=== PATIENT | male | born 1975 | race Caucasian/White ===

== ENCOUNTER 2016-11-11 05:20 | Inpatient (IN) | payer MEDICARE, MEDICAID ==
[2016-11-11] MEDS ORDERED: Scopolamine 1.5 MG Transdermal Patch TRDERM PRN (06:00)
[2016-11-11] MEDS ORDERED: Gabapentin 300 MG Cap PO ONE (06:00)
[2016-11-11] MEDS ORDERED: Celecoxib 100 MG Cap PO ONE (06:00)
[2016-11-11] MEDS ORDERED: Dextrose 5%-Lactated Ringers 1,000 ML IV SCH (06:00)
[2016-11-11] MEDS ORDERED: cefOXitin 2 GM Vial ONE (06:46)
[2016-11-11] MEDS ORDERED: Naloxone 0.4 MG/ML SDV IV PRN (07:14)
[2016-11-11] MEDS ORDERED: Midazolam 1 MG/ML 2 ML SDV ONE (07:15)
[2016-11-11] MEDS ORDERED: fentaNYL 250 MCG/5 ML SDV ONE (07:15)
[2016-11-11] MEDS ORDERED: HYDROmorphone/Normal Saline 15 MG/30 ML PCA IV PRN (07:15)
[2016-11-11] MEDS ORDERED: Propofol 200 MG/20 ML SDV ONE (07:16)
[2016-11-11] MEDS ORDERED: Dexamethasone 4 MG/ML SDV ONE (07:16)
[2016-11-11] MEDS ORDERED: Succinylcholine/Normal Saline 200 MG/10 ML Syringe ONE (07:16)
[2016-11-11] MEDS ORDERED: Neostigmine Methylsulfate 1 MG/ML 5 ML Syringe ONE (07:16)
[2016-11-11] MEDS ORDERED: Rocuronium 50 MG/5 ML Vial ONE (07:16)
[2016-11-11] MEDS ORDERED: Ondansetron 4 MG/2 ML SDV ONE (07:16)
[2016-11-11] MEDS ORDERED: cefOXitin 2 GM in Sodium Chloride 0.9% 100 ML IV ONE (07:30)
[2016-11-11] MEDS ORDERED: Ropivacaine 60 ML, Dexamethasone 8 MG, EPINEPHrine 0.4 MG, Sodium Chloride 0.9% 17.6 ML NERVRT SCH ×4 (07:45)
[2016-11-11] MEDS ORDERED: Lidocaine 2% 100 MG/5 ML Syringe IVPUSH ONE ×2 (08:00)
[2016-11-11] MEDS ORDERED: Ketamine 500 MG/5 ML MDV IV SCH (08:00)
[2016-11-11] MEDS: cefOXitin 2 GM in Sodium Chloride 0.9% 50 ML IV ONE ×2 (08:45→19:29)
[2016-11-11] MEDS ORDERED: Insulin Aspart 100 Units/ML 3 ML Pen SUBCUT ONE (10:15)
[2016-11-11] MEDS ORDERED: SCOPOLAMINE PATCH ASK TOP SCH (11:22)
[2016-11-11] MEDS ORDERED: Ondansetron 4 MG/2 ML SDV IVPUSH PRN (11:22)
[2016-11-11] MEDS ORDERED: hydrOXYzine HCl 50 MG/ML SDV IM PRN (11:22)
[2016-11-11] MEDS ORDERED: Labetalol 20 MG/4 ML Syringe IVPUSH PRN (11:22)
[2016-11-11] MEDS ORDERED: Glucagon,Human Recombinant 1 MG Vial IM PRN (11:28)
[2016-11-11] MEDS ORDERED: 50% Dextrose in Water 50 ML Syringe IVPUSH PRN (11:28)
[2016-11-11] MEDS ORDERED: Metoclopramide 10 MG/2 ML SDV IVPUSH PRN (11:30)
[2016-11-11] MEDS ORDERED: diphenhydrAMINE 50 MG/ML SDV IVPUSH PRN (11:32)
[2016-11-11] MEDS ORDERED: fentaNYL 25 MCG/HR Transdermal Patch TRDERM SCH (12:00)
[2016-11-11] MEDS: Dextrose 5%-Lactated Ringers 1,000 ML IV SCH ×2 (13:01→22:57)
[2016-11-11] MEDS: Lidocaine 0.4%/D5W 2 GM/500 ML BAG IV SCH (13:03)
[2016-11-11] MEDS: Gabapentin 250 MG/5 ML Solution ML 470 ML Bottle PO SCH ×2 (15:13→21:52)
[2016-11-11] MEDS: Pantoprazole 40 MG Vial IVPUSH SCH (15:13)
[2016-11-11] MEDS: Heparin Sodium 5,000 Units/ML Vial SUBCUT SCH (15:54)
[2016-11-11] MEDS: MVI, Adult with Vitamin K 10 ML, Thiamine 200 MG, Chromium/Copper/Mang/Selen/Zn 1 ML in... IV SCH ×4 (15:54)
[2016-11-11] MEDS: cefOXitin 2 GM in Sodium Chloride 0.9% 50 ML IV SCH ×2 (15:54→21:52)
[2016-11-11] MEDS: Insulin Aspart 100 Units/ML 3 ML Pen SUBCUT PRN ×2 (17:48→21:54)
[2016-11-11] MEDS: TRANSDERM SCOP CHECK TOP SCH (19:30)
[2016-11-11] MEDS ORDERED: Insulin Detemir 100 Units/ML 3 ML Pen SUBCUT ONE (21:00)
[2016-11-12] MEDS: Lidocaine 0.4%/D5W 2 GM/500 ML BAG IV SCH (00:27)
[2016-11-12] MEDS: Heparin Sodium 5,000 Units/ML Vial SUBCUT SCH ×3 (00:28→15:26)
[2016-11-12] MEDS: cefOXitin 2 GM in Sodium Chloride 0.9% 50 ML IV SCH ×3 (03:11→15:25)
[2016-11-12] MEDS ORDERED: Iohexol 647 MG/ML 50 ML SDV PO SCH (04:00)
[2016-11-12] MEDS: Insulin Aspart 100 Units/ML 3 ML Pen SUBCUT PRN (05:16)
[2016-11-12] MEDS: Dextrose 5%-Lactated Ringers 1,000 ML IV SCH (05:18)
[2016-11-12] MEDS ORDERED: Dextrose 5%-Lactated Ringers 1,000 ML IV SCH (07:29)
[2016-11-12] MEDS ORDERED: Acetaminophen Soln 650 MG/20.3 ML UD Cup PO PRN (07:36)
[2016-11-12] MEDS ORDERED: Acetaminophen 160 MG Tab,Disintegrating PO PRN (07:36)
[2016-11-12] MEDS: Bacitracin Oint 28.35 GM Tube TOP SCH ×3 (08:17→20:44)
[2016-11-12] MEDS: Gabapentin 250 MG/5 ML Solution ML 470 ML Bottle PO SCH ×2 (08:17→14:08)
[2016-11-12] MEDS: Lisinopril 2.5 MG Tab PO SCH (08:18)
[2016-11-12] MEDS: Celecoxib 100 MG Cap PO SCH (08:19)
[2016-11-12] MEDS: TRANSDERM SCOP CHECK TOP SCH (08:43)
[2016-11-12] MEDS: Magnesium Sulfate/Water 2 GM in Premix Bag 1 BAG IV SCH ×2 (09:55→15:26)
--- NOTE | 2016-11-12 10:00 | CR ---
Limited upper GI The patient is status post Marlon-en-Y gastric bypass. There are left upper quadrant drains in place. There is no extravasation of contrast. The gastric pouch empties readily into a nondilated Marlon limb . No complications are evident. Impression: 1. Status post Marlon-en-Y gastric bypass without evidence for complication.
[2016-11-12] MEDS: Pantoprazole 40 MG Vial IVPUSH SCH (14:08)
[2016-11-12] MEDS: MVI, Adult with Vitamin K 10 ML, Thiamine 200 MG, Chromium/Copper/Mang/Selen/Zn 1 ML in... IV SCH ×4 (17:42)
[2016-11-12] MEDS: traMADol 50 MG Tab PO PRN (18:09)
[2016-11-12] MEDS ORDERED: Insulin Detemir 100 Units/ML 3 ML Pen SUBCUT ONE (21:00)
[2016-11-13] MEDS: Heparin Sodium 5,000 Units/ML Vial SUBCUT SCH ×3 (00:02→16:55)
[2016-11-13] MEDS: traMADol 50 MG Tab PO PRN (02:01)
[2016-11-13] MEDS ORDERED: Sodium Chloride 0.9% 10 ML Syringe FLUSH PRN (08:09)
[2016-11-13] MEDS ORDERED: Cyanocobalamin (Vitamin B12) 1,000 MCG/ML SDV IM ONE (09:00)
[2016-11-13] MEDS: Bacitracin Oint 28.35 GM Tube TOP SCH ×3 (09:19→20:00)
[2016-11-13] MEDS: Lisinopril 2.5 MG Tab PO SCH (09:20)
[2016-11-13] MEDS: Celecoxib 100 MG Cap PO SCH (09:21)
[2016-11-13] MEDS: TRANSDERM SCOP CHECK TOP SCH (09:21)
[2016-11-13] MEDS ORDERED: Insulin Detemir 100 Units/ML 3 ML Pen SUBCUT ONE (21:00)
[2016-11-14] MEDS: Heparin Sodium 5,000 Units/ML Vial SUBCUT SCH ×2 (00:41→07:51)
[2016-11-14 08:20] VITALS: BP 142/80
[2016-11-14] MEDS: Celecoxib 100 MG Cap PO SCH (08:20)
[2016-11-14] MEDS: Lisinopril 2.5 MG Tab PO SCH (08:20)
[2016-11-14] MEDS: Bacitracin Oint 28.35 GM Tube TOP SCH (08:21)
[2016-11-14] MEDS: TRANSDERM SCOP CHECK TOP SCH (08:21)
--- NOTE | 2016-11-14 10:05 | PN ---
DATE OF SERVICE: 11/14/2016 SUBJECTIVE: Vadim is postop day 2. Blood sugars have been 154 and 120. He did receive the alogliptin 25 mg yesterday and Levemir 30. He has been up ambulating. Oral intake has been adequate at 1240. Pain is controlled. OBJECTIVE: GENERAL: Vadim Bruno is a 41-year-old male. He is alert and orientated. VITAL SIGNS: Stable. HEENT: Negative. NECK: Supple. HEART: Regular rate and rhythm. LUNGS: Clear. ABDOMEN: Incisions look good. GERTRUDE drains were discontinued. 4x4s over GERTRUDE drain sites. Abdominal binder is on. EXTREMITIES: Without peripheral edema. ASSESSMENT: Laparoscopic Marlon-en-Y gastric bypass surgery, liver biopsy, repair of diaphragmatic hernia, excision of mediastinal lipoma on 11/11/2016. PLAN: 1. Decrease Levemir to 15 units at bedtime. 2. Step-2 gastric bypass diet without cereal. 3. B12 of 1000 mcg IM injection. 4. Good pulmonary toilet encouraged. 5. On saline lock IV. 6. We will evaluate p.r.n. or in a.m. Jessica Cortez PA-C /[id number]
--- NOTE | 2016-11-14 10:07 | PN ---
DATE OF SERVICE: 11/12/2016 SUBJECTIVE: Vadim is postop day #1. His upper GI was normal. He has been up ambulating. He has no other concerns or questions. Blood sugars have been 188 and 143 this morning. OBJECTIVE: GENERAL: Vadim is a 41-year-old male. He is alert and orientated. SKIN: Warm and dry. Color pale. VITAL SIGNS: TPR is 98.6, 99, 16. Blood pressure 120/64. HEENT: Negative. NECK: Supple. HEART: Regular rate and rhythm. LUNGS: Clear. ABDOMEN: Dressings dry and intact. GERTRUDE drains x2 intact. EXTREMITIES: Without peripheral edema. ASSESSMENT: Laparoscopic Marlon-en-Y gastric bypass surgery, liver biopsy, repair of diaphragmatic hernia, excision of mediastinal lipoma on 11/11/2016. PLAN: Decrease IV rate to 100 mL per hour. Continue step-1 gastric bypass diet. Discontinue Ann. Discontinue telemetry continuous pulse ox. Lisinopril 2.5 mg oral daily. Alogliptin 25 mg oral daily, bacitracin for some tape zavala. CIVIL PROCESS SERVER discontinued. He was started on tramadol 150 to 100 mg every 6 hours. Levemir 30 units subcu given. We will evaluate p.r.n. or in a.m. Jessica Cortez PA-C /[id number]
--- NOTE | 2016-11-15 08:16 | DISCH ---
ADMISSION DIAGNOSES: Morbid obesity, chronic kidney disease, diabetes mellitus type 2, dyslipidemia, history of seizure, and hypertension. DISCHARGE DIAGNOSES: Laparoscopic Marlon-en-Y gastric bypass surgery, liver biopsy, repair of diaphragmatic hernia, and excision of mediastinal lipoma for morbid obesity, hepatomegaly, diaphragmatic hernia, and mediastinal lipoma. HISTORY: Vadim Bruno is a 41-year-old male with longstanding history of morbid obesity and increasing comorbidities. After preoperative evaluation and discussion of possible risks and possible complications, he wished to proceed with surgical procedure. HOSPITAL COURSE: Vadim had a surgery on 11/11/2016. He had no operative complications. On postop day #1, he was started on step-1 gastric bypass diet. His blood sugars were treated appropriately. On postop day #2, he was started on step-2 gastric bypass diet received dietary instruction and a B12 of 1000 mcg mg IM injection. On postop day #3, his activity was good. Blood sugars prior to discharge were 122 and 107. His activity was good, pain was managed, and he was well educated on gastric bypass diet when discharged and he was able to be discharged on 11/14/2016. PHYSICAL EXAMINATION: GENERAL: Vadim Bruno is a 41-year-old male. He is alert and orientated. VITAL SIGNS: Height is 5 feet 9 inches. Weight is 308 pounds, BMI is 45. TPR is 97.2, 79, 20. Blood pressure 114/62. HEENT: Negative. NECK: Supple. HEART: Regular rate and rhythm. LUNGS: Clear. ABDOMEN: Dressings dry and intact. Sutures look good. EXTREMITIES: Without peripheral edema. DISPOSITION: Discharged to home. CONDITION: Stable and improving. FOLLOWUP APPOINTMENT: With Jessica Cortez PA-C, on 11/23/2016 at 12:00 p.m. at [place], [place]. HOME MEDICATIONS: 1. Tylenol 650 mg oral every 6 hours p.r.n. pain, liquid 100 mL. 2. Bacitracin ointment topical apply to tape zavala. 3. Celebrex 200 mg oral daily #14. 4. Zofran ODT 4 mg every 6 hours p.r.n. nausea. 5. Januvia 100 mg oral daily #90 with 4 refills. 6. Tramadol 50 mg 1 to 2 every 6 hours p.r.n. pain #50. 7. He is to resume lisinopril 2.5 mg daily. DIET AFTER DISCHARGE: Drink 8 to 10 glasses of water a day. Diet is step-2 gastric bypass diet with no cereal. ACTIVITY: Cough and deep breathe. No lifting greater than 10 pounds for 2 weeks. Walk 8 times daily inside your home. Driving, do not drive on pain medication. Shower bathing, may shower. Notify provider of fever, increased pain, swelling, redness, drainage, nausea, or vomiting. Wound incision care; keep site clean and dry, wear abdominal binder for 2 weeks and then as tolerated. SPECIAL INSTRUCTIONS: 1. Check blood sugars twice a day and record the results. 2. Use incentive spirometer 10 times every hour while awake for 2 weeks. 3. Call the clinic in 2 days with results of blood sugars. 4. Start multivitamin chewable take twice a day. 5. Start B12 of 1000 mcg under your tongue once a day. 6. Clinic number is [phone].
--- NOTE | 2016-11-15 10:24 | OR ---
DATE OF PROCEDURE: 11/11/2016 PREOPERATIVE DIAGNOSIS: Morbid obesity. POSTOPERATIVE DIAGNOSES: 1. Morbid obesity. 2. Marked hepatomegaly. 3. Paraesophageal diaphragmatic hernia. 4. Mediastinal lipoma. OPERATIVE PROCEDURE: 1. Placement of bilateral transversus abdominis plane block (29483). 2. Diagnostic laparoscopy with:. a. Laparoscopic Marlon-en-Y gastric bypass along with long limb gastroenterostomy (93760). b. Eleno-Cut needle liver biopsy (69795). c. Repair of paraesophageal diaphragmatic hernia (47540). d. Excision of mediastinal lipoma (60818). ANESTHESIA: General. SHOE SALESMAN: Jessica Cortez PA-C. INDICATION FOR PROCEDURE: This is a 41-year-old male presenting with longstanding morbid obesity and increasingly significant comorbidities. After preoperative evaluation and discussion, he wished to proceed with a gastric bypass procedure. Potential risks of the procedure including bleeding, infection, injury to underlying viscera, possible problems with leaks from GI tract closures, bowel obstruction over time as well as possibility of cardiopulmonary, septic, or hemorrhagic complications leading to were all discussed and the patient wishes to proceed. DETAILS OF PROCEDURE: The patient was taken to the operating room and placed in a supine position. After general endotracheal anesthesia was induced, converted to a lithotomy position and a Ann catheter was inserted. At that point, bilateral subcostal transversus abdominis plane blocks were placed using combination of ropivacaine, dexamethasone, epinephrine, sodium chloride with 40 mL injected on each site with direct ultrasound guidance using sterile technique. Following that, the abdomen was prepped and draped and the orogastric tube placed. At 15 cm inferior and 5 cm left of xiphoid process, transverse incision was made and peritoneal cavity entered direct vision with an Optiview trocar, was inflated to 15 mmHg pressure with CO2. Laparoscope was then reinserted and no underlying trocar insertion site injuries were seen. Following this, 5 additional trocars were placed across the upper and mid abdomen and general exploration was undertaken. The patient noted to have marked hepatomegaly with liver volume being roughly 2 to 3 times normal and somewhat fatty infiltrated. Eleno-Cut needle biopsies were obtained from the left lobe of liver and minimal bleeding from the biopsy sites was controlled with electrocautery. The omentum was then divided in the midline up to the level of the transverse colon allowing identification of the small bowel at the ligament of Treitz. Small bowel was then traced out 200 cm distal to that point and was divided transversely with a HANNAH stapler. Small bowel was then traced out to additional 200 cm where the [id number]-ru-lpho enteroenterostomy was accomplished with an internal firing of the Endo-HANNAH 60-mm stapler. The common opening was then closed transversely with the same stapler and angles anastomosed, and mesenteric defect approximated with some 0-Ethibond stitch along with fibrin sealant. The divided end of the Marlon limb was then from the mesentery for a few centimeters, which allowed an antecolic positioning of the Marlon limb up to the level of the gastroesophageal junction without tension. The liver was then retracted anteriorly. The patient was noted to have a significant paraesophageal-type diaphragmatic hernia. This contained some perigastric fat and gastric fundus along with the edge of omentum and prolapsing in a plane anterior to the course of the esophagus. This area was reduced and the peritoneum overlying the hernia divided and reflected downward. An anterior repair of the hernia was then accomplished with some 0- Ethibond sutures reinforced with PTFE pledgets and then during the course of the mediastinal dissection, the lipoma was encountered, and to facilitate adequate repair, this was excised and sent in for pathologic review. The gastrointestinal balloon catheter was then inflated to 15 mL and pulled up snugly against the EG junction, gastric wall over the apex balloon was then marked with electrocautery, and balloon catheter deflated and pulled up in the esophagus. The lesser omental tissue adjacent to the cardia was then incised allowing dissection behind the stomach at that level, the pouch formation was initiated with a transverse firing of the HANNAH stapler at the level of cauterized karmen in the gastric cardia. Pouch was then completed with 2 additional firings of the HANNAH staplers up to and through the angle of His. Upon completion of the pouch formation, both staple lines were found to be intact. The anvil of a 25 mm EEA stapler was attached to [place] sump type tube. The latter was brought down through the mouth and taken out through the small opening of the gastric pouch. The anvil likewise was pulled down to within the gastric pouch. The divided end of the Marlon limb was then opened and main body of the EEA stapler passed several centimeters in the lumen of small bowel, brought up the anvil and united with it, thus creating the gastrojejunostomy. Upon removal of the stapler, double donuts of mucosa were noted within it. The small bowel was closed off with a vascular staple line. The gastrojejunostomy was then reinforced with some 3-0 Vicryl seromuscular stitch along with fibrin sealant. Leak test was accomplished with injection of 120 mL of air in the gastric pouch while submerging with cefoxitin-containing saline solution. No leaks were identified. Two Stephen-Izaguirre drains were then placed adjacent to the gastrojejunostomy, taken out through subcostal trocar sites. No further problems were noted. Trocars were removed. The peritoneal cavity was deflated. Incisions were closed with some 4-0 Vicryl skin stitch and drains with 4-0 Vicryl stitch as well. The patient was taken to the recovery room in a satisfactory condition. Physician library services assistant, Jessica Cortez played an essential role in assisting in this case, helping to position the patient, retract structures as needed, as well as suturing and cutting sutures as indicated. Her presence improved the patient safety and decreased the operative time. Juvenal Amador MD /[id number]
--- NOTE | 2016-11-15 10:33 | PN ---
DATE OF SERVICE: 11/12/2016 SUBJECTIVE: Vadim is postop day #1, his upper GI was normal. His pain has been controlled. He has been up ambulating. Oral intake was 960. GERTRUDE drain put out 40 mL of a light pink drainage. Temp max was 100.2. He is using his IS. Temp is currently is 98.6. Blood sugars have been 286, 260, and 255. The pain he states has been controlled. REVIEW OF SYSTEMS: Remainder of review of systems negative for any pertinent positives and negatives. OBJECTIVE: GENERAL: Vadim Bruno is a 41-year-old male. His color is flushed, he is sitting in chair. VITAL SIGNS: TPR is 98.6, 86, 20. Blood pressure 142/84. HEENT: Negative. NECK: Supple. HEART: Regular rate and rhythm. LUNGS: Clear. ABDOMEN: Dressings dry and intact. Abdominal binder is on and GERTRUDE drains x2 intact draining 35 and 40 mL respectively of a light pink drainage. EXTREMITIES: Revealed trace peripheral edema. ASSESSMENT: Laparoscopic Marlon-en-Y gastric bypass surgery, liver biopsy, repair of diaphragmatic hernia, and excision of mediastinal lipoma for morbid obesity, hepatomegaly, diaphragmatic hernia, and mediastinal lipoma on 11/11/2016. PLAN: 1. Discontinue Ann catheter. Decrease IV to 40 mL/h. Continue step-1 gastric bypass diet. Discontinue telemetry. Continuous pulse ox. SERVICE ENGINEER. 2. Magnesium 2 g IV q.6 hours x72 hours. Levemir 30 units subcu one time at 2100 hours. Januvia 100 mg p.o. daily. Bacitracin ointment to tape zavala 3 times a day. Tylenol 650 mg liquid q.6 hours p.r.n. lesser pain and/or Tylenol Nikita Meltaways 640 mg p.o. q.4 hours p.r.n. lesser pain, the patient may choose one or the other. Lisinopril 2.5 mg p.o. daily. 3. Good pulmonary toilet encouraged. 4. We will evaluate p.r.n. or in a.m. Jessica Cortez PA-C /[id number]
--- NOTE | 2016-11-18 09:21 | PN ---
DATE OF SERVICE: 11/13/2016 SUBJECTIVE: Vadim is postop day 2. He is tolerating the step-1 diet. Blood sugars have been coming down nicely. No other complaints. He has been ambulating, and pain has been controlled. OBJECTIVE: GENERAL: Vadim is a 41-year-old male, alert and orientated. VITAL SIGNS: Stable. HEENT: Negative. NECK: Supple. HEART: Regular rate and rhythm. LUNGS: Clear. ABDOMEN: Incisions look good. Abdominal binder is on. EXTREMITIES: Without peripheral edema. ASSESSMENT: Laparoscopic Marlon-en-Y gastric bypass surgery, liver biopsy, repair of diaphragmatic hernia, excision of mediastinal lipoma, 11/11/2016. PLAN: 1. Decrease Levemir. 2. Continue step-2 gastric bypass diet. 3. Good pulmonary toilet encouraged. 4. May saline lock IV. 5. We will evaluate p.r.n. or in a.m. Jessica Cortez PA-C /[id number]
== END 2016-11-14 10:43 | disposition home or self-care (01) | DRG 621 ==
LOC: JP.MS 05:20 → UNDOADMIN 05:20 → JP.SDS 05:20 → EDSTATUS 10:00 → JP.2SS 10:50
PROVIDERS: ADMIT Surgery; ATTEND Surgery
PROC: 0DB63ZZ Excision of Stomach, Percutaneous Approach (ICD-10-PCS; principal; 2016-11-11)
PROC: 0D164ZA Bypass Stomach to Jejunum, Percutaneous Endoscopic Approach (ICD-10-PCS; principal; 2016-11-11)
PROC: 0DB84ZZ Excision of Small Intestine, Percutaneous Endoscopic Approach (ICD-10-PCS; principal; 2016-11-11)
PROC: [UNRECOGNIZED PROCEDURE] (principal; 2016-11-11)
PROC: 0BUR4KZ (ICD-10-PCS; principal; 2016-11-11)
PROC: 0FB24ZX Excision of Left Lobe Liver, Percutaneous Endoscopic Approach, Diagnostic (ICD-10-PCS; principal; 2016-11-11)
PROC: 0WBH4ZX Excision of Retroperitoneum, Percutaneous Endoscopic Approach, Diagnostic (ICD-10-PCS; principal; 2016-11-11)
DX: E66.01 Morbid (severe) obesity due to excess calories (principal); I12.9 Hypertensive chronic kidney disease with stage 1 through stage 4 chronic kidney disease, or unspecified chronic kidney disease; N18.9 Chronic kidney disease, unspecified; E78.5 Hyperlipidemia, unspecified; Z86.69 Personal history of other diseases of the nervous system and sense organs; Z68.42 Body mass index [BMI] 45.0-49.9, adult; Z79.4 Long term (current) use of insulin; R16.0 Hepatomegaly, not elsewhere classified; K44.9 Diaphragmatic hernia without obstruction or gangrene; D17.9 Benign lipomatous neoplasm, unspecified; E11.9 Type 2 diabetes mellitus without complications
CPT/HCPCS: 36415; 74240; 74240-26; 80048; 82962; 83036; 83735; 84100; 85027; 86850; 86900; 86901; 88304; 88305; 88307; 88342; A9270-GY; C9113; J0171; J0694; J1100; J1170; J1644; J2001; J2250; J2405; J2704; J2795; J3010; J3411; J3420; J3475; J7030; J7040; J7042; J7050; Q9967

== ENCOUNTER 2018-09-05 21:36 | Inpatient (IN) | payer MEDICAID, MEDICARE ==
[~2018-09-05 21:36] MED LIST: HYDROmorphone/Normal Saline 15 MG/30 ML PCA IV PRN; Naloxone 0.4 MG/ML SDV IV PRN; hydrOXYzine HCl 100 MG/2 ML SDV IM PRN
[2018-09-05] MEDS ORDERED: cefOXitin 2 GM in Sodium Chloride 0.9% 50 ML IV ONE (21:55)
[2018-09-05] MEDS ORDERED: Lactated Ringers 1,000 ML IV SCH (22:00)
[2018-09-05] MEDS ORDERED: Succinylcholine 200 MG/10 ML MDV ONE (22:13)
[2018-09-05] MEDS ORDERED: Glycopyrrolate 0.2 MG/ML 5 ML MDV ONE (22:13)
[2018-09-05] MEDS ORDERED: Rocuronium 50 MG/5 ML Vial ONE ×2 (22:13→22:44)
[2018-09-05] MEDS ORDERED: Dexamethasone 4 MG/ML SDV ONE (22:13)
[2018-09-05] MEDS ORDERED: fentaNYL 250 MCG/5 ML SDV ONE ×2 (22:13→23:03)
[2018-09-05] MEDS ORDERED: Neostigmine Methylsulfate 1 MG/ML 5 ML Syringe ONE (22:13)
[2018-09-05] MEDS ORDERED: Propofol 200 MG/20 ML SDV ONE (22:13)
[2018-09-05] MEDS ORDERED: Ondansetron 4 MG/2 ML SDV ONE (22:13)
[2018-09-05] MEDS ORDERED: HYDROmorphone/Normal Saline 15 MG/30 ML PCA IV ONE (22:15)
[2018-09-05] MEDS ORDERED: HYDROmorphone/Normal Saline 15 MG/30 ML PCA IV PRN (22:47)
[2018-09-05] MEDS ORDERED: Naloxone 0.4 MG/ML SDV IVPUSH PRN (22:47)
[2018-09-05] MEDS ORDERED: Meropenem 500 MG SDV ONE (23:02)
[2018-09-05] MEDS ORDERED: Lactated Ringers 1,000 ML ONE (23:38)
[2018-09-06] MEDS ORDERED: hydrOXYzine HCl 100 MG/2 ML SDV IM ONE (00:10)
[2018-09-06] MEDS ORDERED: hydrOXYzine HCl 100 MG/2 ML SDV ONE (00:12)
[2018-09-06] MEDS ORDERED: Metoclopramide 10 MG/2 ML SDV IV PRN (00:56)
[2018-09-06] MEDS ORDERED: hydrOXYzine HCl 100 MG/2 ML SDV IM PRN (00:56)
[2018-09-06] MEDS ORDERED: diphenhydrAMINE 50 MG/ML SDV IVPUSH PRN ×2 (00:56→07:23)
[2018-09-06] MEDS ORDERED: Ondansetron 4 MG/2 ML SDV IVPUSH PRN (00:56)
[2018-09-06] MEDS ORDERED: Labetalol 100 MG/20 ML MDV IVPUSH PRN (00:56)
[2018-09-06] MEDS ORDERED: Dextrose 5%-Lactated Ringers 1,000 ML IV SCH (01:00)
[2018-09-06] MEDS ORDERED: Scopolamine 1.5 MG Transdermal Patch TRDERM PRN (01:08)
[2018-09-06] MEDS: Pantoprazole 40 MG Vial IVPUSH SCH (01:33)
[2018-09-06] MEDS: Acetaminophen Soln 650 MG/20.3 ML UD Cup PO SCH ×4 (01:34→18:28)
[2018-09-06] MEDS: cefOXitin 2 GM in Sodium Chloride 0.9% 50 ML IV SCH ×4 (03:13→21:02)
[2018-09-06] MEDS: Tamsulosin 0.4 MG Cap.ER PO SCH ×2 (08:38→17:13)
--- NOTE | 2018-09-06 08:55 | PN ---
DATE OF SERVICE: 09/06/2018 SUBJECTIVE: Vadim had surgery in the middle of the night. He reports an increased amount of pain in his incision. Running a low-grade temperature. Temperature max 99.7. He has not been up yet. Surgery was close to midnight. Oral intake, just sips. Urinary output via Ann catheter 750 of a light yellow drainage. SCDs are on. REVIEW OF SYSTEMS: Remainder of review of systems negative for any pertinent positives and negatives. OBJECTIVE: GENERAL: Vadim Bruno is a 42-year-old male, pale, sleepy. VITAL SIGNS: TPR is 99.4, 71, 16, blood pressure 103/52. HEENT: Negative. NECK: Supple. HEART: Regular rate and rhythm. LUNGS: Clear. ABDOMEN: Dressings dry and intact. Abdominal binder is on. EXTREMITIES: SCDs are on. There is no peripheral edema. ASSESSMENT: Exploratory laparotomy with revision of the jejunojejunostomy component of the Marlon-en-Y gastric bypass. Reduction of small bowel volvulus and closure of internal hernia and rectosigmoid resection with cecoproctostomy for small bowel volvulus with ischemia to the jejunostomy and chronic sigmoid colon volvulus. PLAN: 1. Magnesium 2 g IV q.6 h. x72 hours. 2. Decrease IV to 100 mL per hour at 1400. 3. Step-2 with no cereal gastric bypass diet. 4. Flomax 0.4 mg b.i.d. 5. Check hemoglobin A1c today. 6. Leave Ann catheter in for accurate output. 7. Good pulmonary toilet. 8. We will evaluate p.r.n. or in a.m. Jessica Cortez PA-C /[id number]
[2018-09-06 09:25] LABS: HEMOGLOBIN A1C 5.7 % (4.5-6.2)
[2018-09-06] MEDS: Magnesium Sulfate/Water 2 GM in Premix Bag 1 BAG IV SCH ×3 (10:45→21:39)
[2018-09-06] MEDS ORDERED: MVI, Adult with Vitamin K 10 ML, Thiamine 200 MG, Chromium/Copper/Mang/Selen/Zn 1 ML in... IV SCH ×4 (16:00)
[2018-09-07] MEDS: Acetaminophen Soln 650 MG/20.3 ML UD Cup PO SCH ×3 (01:27→13:20)
[2018-09-07] MEDS: Pantoprazole 40 MG Vial IVPUSH SCH (01:27)
[2018-09-07] MEDS: Dextrose 5%-Lactated Ringers 1,000 ML IV SCH ×2 (01:28→13:21)
[2018-09-07] MEDS ORDERED: Iohexol 647 MG/ML 50 ML SDV PO STA (01:33)
[2018-09-07] MEDS: cefOXitin 2 GM in Sodium Chloride 0.9% 50 ML IV SCH (03:42)
[2018-09-07] MEDS: Magnesium Sulfate/Water 2 GM in Premix Bag 1 BAG IV SCH ×2 (03:42→10:26)
[2018-09-07] MEDS: Tamsulosin 0.4 MG Cap.ER PO SCH ×2 (07:48→16:32)
[2018-09-07] MEDS ORDERED: Cyanocobalamin (Vitamin B12) 1,000 MCG/ML SDV IM ONE (09:00)
[2018-09-07] MEDS ORDERED: Bisacodyl 5 MG Tab PO SCH (09:00)
[2018-09-07] MEDS: Docusate Sodium 100 MG Cap PO SCH ×2 (09:37→20:01)
--- NOTE | 2018-09-07 10:38 | PN ---
DATE OF SERVICE: 09/07/2018 SUBJECTIVE: Vadim is postoperative day #2. He states his pain is controlled. He has been up ambulating. Upper GI this morning was normal. REVIEW OF SYSTEMS: Remainder of review of systems negative for any pertinent positives and negatives. OBJECTIVE: GENERAL: Vadim Bruno is a 42-year-old male. He is alert and orientated, sitting up in the chair. VITAL SIGNS: TPR is 100.5, 93, 18, and blood pressure 125/68. HEENT: Negative. NECK: Supple. HEART: Regular rate and rhythm. LUNGS: Clear. ABDOMEN: Dressings dry and intact. Abdominal binder is on. Ann is intact. His urine output was 970. Oral intake was 1050. IV continues to run at 100 mL/hour. EXTREMITIES: Without peripheral edema. ASSESSMENT: Exploratory laparotomy with revision of the jejunojejunostomy component of the Marlon-en-Y gastric bypass, reduction of small bowel volvulus and closure of internal hernia, and rectosigmoid resection with cecal proctoscopy for small bowel volvulus with ischemia to the jejunostomy and chronic sigmoid colon volvulus. Date of surgery, 09/05/2018. PLAN: 1. Step-3 gastric bypass diet. 2. Discontinue VARNISH THINNER, continuous pulse ox. 3. Percocet 5/325 mg 1 to 2 every 4 hours p.r.n. pain. 4. Discontinue Ann catheter. 5. Dressing off and may shower. 6. Colace 100 mg b.i.d. 7. Dulcolax two tabs b.i.d. until having bowel movement. 8. Good pulmonary toilet. 9. We will evaluate p.r.n. or in a.m. Jessica Cortez PA-C /[id number]
--- NOTE | 2018-09-07 11:33 | CR ---
Limited upper GI The patient is status post Marlon-en-Y gastric bypass. There is no extravasation of contrast. The gastric pouch empties readily into a nondilated Marlon limb. There is gaseous distention of the colon which may reflect a ileus.. No complications are evident. Impression: 1. Status post Marlon-en-Y gastric bypass without evidence for complication.
[2018-09-07] MEDS: Acetaminophen/oxyCODONE 325-5 MG Tab PO PRN ×3 (11:58→21:35)
[2018-09-07] MEDS ORDERED: Ondansetron 4 MG Tab.DIS PO PRN (14:34)
[2018-09-07] MEDS ORDERED: Pantoprazole 40 MG Delayed-Release Granules 1 Packet PO SCH (22:00)
[2018-09-08] MEDS: Acetaminophen/oxyCODONE 325-5 MG Tab PO PRN ×2 (04:07→11:56)
[2018-09-08] MEDS: Tamsulosin 0.4 MG Cap.ER PO SCH (08:32)
[2018-09-08] MEDS: Docusate Sodium 100 MG Cap PO SCH (08:34)
[2018-09-08 08:43] VITALS: BP 131/78
--- NOTE | 2018-09-11 09:00 | DISCH ---
ADMISSION DIAGNOSES: Partial small bowel obstruction, SP Marlon-en-Y gastric bypass surgery, type 2 diabetes mellitus in remission, chronic kidney disease stage 3, hypertension, history of seizure disorder, vitamin B deficiency, vitamin D deficiency, and dyslipidemia. DISCHARGE DIAGNOSES: Exploratory laparotomy with revision of the jejunojejunostomy component of the Marlon-en-Y gastric bypass surgery, reduction of small bowel volvulus and closure of internal hernia and rectosigmoid resection with cecoproctostomy for small bowel volvulus with ischemia to the jejunostomy and chronic sigmoid colon volvulus. Date of surgery 09/05/2018. HISTORY: Vadim Bruno is a 42-year-old male who presented to the emergency room and transferred [facility] with a small bowel obstruction. After preoperative evaluation and discussion of possible risks and possible complications, he consented to surgery. There were no operative complications. Upper GI was normal. He was started on a step-2 and then advanced to a step-3 diet. He was changed to oral pain medication, given bowel stimulation, and was able to be discharged to home on 09/08/2018 without any complications. PHYSICAL EXAMINATION: GENERAL: Vadim Bruno is a 42-year-old male. He is alert and orientated. VITAL SIGNS: TPR 99.4, 75, 16, and blood pressure 119/75. HEENT: Negative. NECK: Supple. HEART: Regular rate and rhythm. LUNGS: Clear. ABDOMEN: Vitkoria intact. Abdominal binder has been on. EXTREMITIES: Without peripheral edema. DISPOSITION: Discharged to home. CONDITION: Stable and improving. FOLLOWUP APPOINTMENT: Jessica Cortez PA-C at [facility] on 09/15/2018 at 10:00 a.m. HOME MEDICATIONS: 1. Percocet 5/325 mg 1 to 2 tables every 4 hours p.r.n. pain. 2. Zofran ODT 4 mg every 4 hours p.r.n. nausea. 3. He is to resume his home medications. DISCHARGE DIET: Diet after discharge is step-3 gastric bypass diet. Drink 8 to 10 glasses of water a day. ACTIVITY: No lifting greater than 10 pounds for 2 weeks. Walk at least 6 times daily. Driving, do not drive while on pain medication. Shower/bathing, may shower. Keep operative site clean and dry. Wear abdominal binder for 6 weeks and then as tolerated. Notify provider if any fever, increased pain, nausea, or vomiting. OTHER INSTRUCTION: Use incentive spirometer 10 times every hour while awake for 1-week.
--- NOTE | 2018-09-18 13:12 | OR ---
DATE OF PROCEDURE: 09/05/2018 PREOPERATIVE DIAGNOSIS: Small bowel volvulus. POSTOPERATIVE DIAGNOSES: 1. 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 2. Chronic sigmoid colon volvulus. OPERATIVE PROCEDURES: Exploratory laparotomy with: 1. Revision of jejunojejunostomy component of Marlon-en-Y gastric bypass (59957). 2. Reduction of small bowel volvulus and closure of internal hernia (79552). 3. Rectosigmoid resection with coloproctostomy (03583). 4. Placement of Interceed mesh to limit pelvic and abdominal wall adhesions to underlying viscera (66796). ANESTHESIA: General. INDICATION FOR PROCEDURE: This is a 42-year-old presenting with a picture of small bowel volvulus status post Marlon-en-Y gastric bypass. The patient was admitted for IV hydration and plans to proceed with exploratory laparotomy with reduction of the hernia, bowel resection as needed, and other procedures as indicated by operative findings. Potential risks including bleeding, infection leaks from GI tract closures, and problems with bowel obstruction recurring over time were all reviewed, and the patient wishes to proceed. DETAILS OF PROCEDURE: The patient was taken to the operating room and placed in a supine position. After general endotracheal anesthesia was induced, a Ann catheter was inserted and the abdomen prepped and draped. A midline incision from the umbilicus roughly a handsbreadth up to the xiphoid was then made and carried down through the full-thickness abdominal wall and peritoneal cavity entered. Upon entering the peritoneal cavity, the patient was noted to have some dusky-appearing bowel. This appeared to be viable, but had somewhat of a davison appearance due to venous stasis. The bowel was identified then at the ileocecal valve, and the bowel was then reduced, pulling the small bowel from a left-to- right direction. Eventually, the jejunojejunostomy came under the area of the volvulus as well, and the area was successfully reduced. At that point, all of the bowel became pink color, and there was some area of hemorrhage in the distal most Marlon limb adjacent to the jejunojejunostomy. It was felt that the jejunojejunostomy at this point needed to be revised. A small portion of that bowel was then resected flush with the anastomosis and somewhat proximal to it with HANNAH bob. The underlying mesentery was also divided with HANNAH bob. The jejunojejunostomy was then revised somewhat more distally with the new jejunojejunostomy being configured roughly 50 cm further distally along the small bowel with anastomosis of the now distal end of the Marlon limb to that bowel at that level with a side- to-side enteroenterostomy with an internal firing of the HANNAH 60 mm stapler followed by a 30 mm stapler internal firing, was then closed transversely with the purple load, and the underlying mesentery then reapproximated with a running 2-0 silk stitch. This effectively closed off the mesenteric defect at that level to limit chances of recurrent volvulus formation. The angles of anastomosis were then reinforced with some 3-0 Vicryl stitch as well. At this point, the patient was noted to have a strikingly distended sigmoid colon. This appeared to be chronically flipped over on itself with there being increase at the base where it was volvulized. This was felt best to be treated by means of resection. The upper rectum was then initially divided with the HANNAH black load, the proximal sigmoid colon divided with purple load, the mesentery between the 2 points then divided with mesenteric loads, and the specimen consisting of the sigmoid colon and upper rectum were then delivered from the field. A [id number] coloproctostomy was then accomplished with 2 internal firings of the HANNAH lazo loads and the common opening then closed with purple loads. The angles of anastomosis and mesenteric defect in this case were then approximated with some 3- 0 Vicryl stitch. Both of the new anastomoses were then reinforced with fibrin sealant, and at that point, the abdomen was irrigated with antibiotic-containing saline solution, and it was felt that the patient was high risk for adhesion formation between the viscera and the pelvic and abdominal daley. Given this, Interceed mesh was placed across those surfaces to limit the adhesion formation displacing the bowel from those surfaces during the early healing phase. At that point, the midline fascia was approximated with #2 Vicryl stitch, subcutaneous tissue with 2 layers of 3-0 Vicryl stitch, and the skin with bob. Dressing was applied. The patient had had a TAP block placed bilaterally directly within the abdomen, and the patient was taken to the recovery room in satisfactory condition. Juvenal Amador MD /[id number]
== END 2018-09-08 12:10 | disposition home or self-care (01) | DRG 330 ==
LOC: JP.ED 21:36 → JP.SDS 21:42 → JP.2SS 09-06 00:30
PROVIDERS: ADMIT Surgery; ATTEND Surgery
PROC: 0DSA0ZZ Reposition Jejunum, Open Approach (ICD-10-PCS; principal; 2018-09-05)
PROC: 3E0M05Z Introduction of Adhesion Barrier into Peritoneal Cavity, Open Approach (ICD-10-PCS; 2018-09-05)
PROC: 0DBP0ZZ Excision of Rectum, Open Approach (ICD-10-PCS; 2018-09-05)
PROC: 0DBN0ZZ Excision of Sigmoid Colon, Open Approach (ICD-10-PCS; 2018-09-05)
DX: K56.2 Volvulus (principal); K91.2 Postsurgical malabsorption, not elsewhere classified; K63.89 Other specified diseases of intestine; K46.9 Unspecified abdominal hernia without obstruction or gangrene; I12.9 Hypertensive chronic kidney disease with stage 1 through stage 4 chronic kidney disease, or unspecified chronic kidney disease; N18.3 Chronic kidney disease, stage 3 (moderate); Z98.84 Bariatric surgery status; Z98.0 Intestinal bypass and anastomosis status; E78.5 Hyperlipidemia, unspecified; E53.8 Deficiency of other specified B group vitamins; E55.9 Vitamin D deficiency, unspecified; Z87.898 Personal history of other specified conditions; Z86.39 Personal history of other endocrine, nutritional and metabolic disease
CPT/HCPCS: 36415; 74240; 74240-26; 80053; 82607; 82728; 83036; 83735; 84100; 85025; 88307; 96365; 96372; 99285-25; A9270-GY; C9113; J0330; J0694; J1100; J1170; J2185; J2405; J2704; J2710; J3010; J3410; J3411; J3420; J3475; J3490; J7042; J7050; J7120; Q9967